=== PATIENT | male | born 1990 | race Caucasian/White ===

== ENCOUNTER 2018-10-07 14:22 | Outpatient (CLI) | payer OTHER | END 2018-10-07 14:23 | disposition home or self-care (01) | LOC: CTENTCT 14:22 | PROVIDERS: ATTEND Otolaryngology Plastic Surgery within the Head & Neck | DX: J32.9 Chronic sinusitis, unspecified (principal) | CPT/HCPCS: 70486 ==

== ENCOUNTER 2018-10-09 07:33 | Day surgery (SDC) | payer OTHER ==
[2018-10-08 10:18] VITALS: BMI 31.4
[2018-10-09] MEDS ORDERED: Fentanyl 250 MCG/5 ML VIAL ONE (08:21)
[2018-10-09] MEDS ORDERED: Oxymetazoline HCl 0.05% ( 15 ML ) ONE ×2 (08:24→09:29)
[2018-10-09] MEDS ORDERED: Bacitracin Zinc Ointment 30 gm TUBE ONE (09:29)
[2018-10-09] MEDS ORDERED: Lidocaine 1% w/Epinephrine 1:100K 20 ML VIAL ONE (09:29)
[2018-10-09] MEDS ORDERED: Morphine 4 MG/ML VIAL ONE (09:41)
[2018-10-09] MEDS ORDERED: Fentanyl 100 MCG/2 ML VIAL ONE ×2 (10:56→11:23)
[2018-10-09] MEDS ORDERED: HYDROcodone/Acetaminophen 5/325 mg Tablet ONE (12:03)
--- NOTE | 2018-10-10 10:03 | OP ---
DATE OF PROCEDURE: 10/09/2018 PREOPERATIVE DIAGNOSES: 1. Chronic rhinosinusitis. 2. Nasal septal deviation. 3. Bilateral inferior turbinate hypertrophy. 4. Nasal obstruction. POSTOPERATIVE DIAGNOSES: 1. Chronic rhinosinusitis. 2. Nasal septal deviation. 3. Bilateral inferior turbinate hypertrophy. 4. Nasal obstruction. PROCEDURES PERFORMED: 1. Bilateral endoscopic sinus surgery, total ethmoidectomies. 2. Bilateral endoscopic sinus surgery, maxillary antrostomies. 3. Bilateral endoscopic sinus surgery, frontal sinusotomies. 4. Nasal septoplasty. 5. Bilateral inferior turbinate submucosal resection. ESTIMATED BLOOD LOSS: 20 mL. COMPLICATIONS: None. ANESTHESIA: GETA. PROCEDURE IN DETAIL: Patient was taken to the operating room and placed supine on the table. General endotracheal anesthesia was obtained by the anesthesia staff. Tube was secured in the left lower lip. Patient was then placed in the beach chair position, and Afrin pledgets were placed in the nasal cavity. Injections of 1% lidocaine with 1:100,000 epinephrine were made into the nasal septum as well as the inferior turbinates. Patient was then prepped and draped in standard surgical fashion for nasal surgery. Following this, the Afrin pledgets were removed. A Elliot incision was made on the left nasal septum. Submucoperichondrial dissection was performed. The deviated portions of the septum included portions of the cartilage and the bony septum. These isolated areas were removed using 3 cutting rongeurs. There was noted to be a large dorsal and caudal strut, left intact for support of the nose. The mucoperichondrial flaps were then reapproximated using a 4-0 gut stitch. Any straight pieces of cartilage were crushed prior to this and placed between the mucoperichondrial flaps. Following this, the inferior turbinates were then punctured with a submucosal coblation wand, and submucosal coblations were performed of multiple areas of the inferior portion of the anterior inferior turbinate. Following this, a 0-degree endoscope was advanced into the middle meatus. The middle turbinate was gently medialized with a Strawberry elevator. The uncinate process was identified and was anteriorly fractured using a ball-ended probe bilaterally. Following this, the 0-degree and up-biting Blakesley forceps were used to remove the uncinate process bilaterally. Following this, the natural maxillary sinus ostia was identified using a ball-ended probe and was gently widened using a 40-degree microdebrider and the straight Blakesley forceps bilaterally. Following this, the ethmoidal bulla was identified bilaterally and was punctured on its medial and inferior aspect with the 0-degree microdebrider. Using the 0-degree microdebrider and the up-biting Blakesley forceps, the ethmoidal bulla was opened along with the anterior ethmoidal cells. Following this, the grand lamella was identified and was punctured into the posterior ethmoidal cells. Working from posterior to anterior, the ethmoidal cells were opened using the 0-degree microdebrider, the curved microdebrider, and the up-biting Blakesley forceps. Following this, a 45-degree endoscope along with the 40-degree microdebrider blade were used to identify the frontal sinus ostia, which was then widened bilaterally using the 40-degree microdebrider. Following this, the nasal cavity was irrigated. Mirapex was placed within the middle meatus. Trujillo splints were placed and secured. The patient tolerated the procedure well. Job ID: [id number]
== END 2018-10-09 12:29 | disposition home or self-care (01) ==
LOC: SDC 07:33
PROVIDERS: ATTEND Otolaryngology Plastic Surgery within the Head & Neck
PROC: 099Q8ZZ Drainage of Right Maxillary Sinus, Via Natural or Artificial Opening Endoscopic (ICD-10-PCS; principal; 2018-10-09)
PROC: 099U8ZZ Drainage of Right Ethmoid Sinus, Via Natural or Artificial Opening Endoscopic (ICD-10-PCS; principal; 2018-10-09)
PROC: 09SM0ZZ Reposition Nasal Septum, Open Approach (ICD-10-PCS; principal; 2018-10-09)
PROC: 099V8ZZ Drainage of Left Ethmoid Sinus, Via Natural or Artificial Opening Endoscopic (ICD-10-PCS; principal; 2018-10-09)
PROC: 099S8ZZ Drainage of Right Frontal Sinus, Via Natural or Artificial Opening Endoscopic (ICD-10-PCS; principal; 2018-10-09)
PROC: 099R8ZZ Drainage of Left Maxillary Sinus, Via Natural or Artificial Opening Endoscopic (ICD-10-PCS; principal; 2018-10-09)
PROC: 09BL8ZZ Excision of Nasal Turbinate, Via Natural or Artificial Opening Endoscopic (ICD-10-PCS; principal; 2018-10-09)
PROC: 099T8ZZ Drainage of Left Frontal Sinus, Via Natural or Artificial Opening Endoscopic (ICD-10-PCS; principal; 2018-10-09)
DX: J32.8 Other chronic sinusitis (principal); J34.2 Deviated nasal septum; J34.3 Hypertrophy of nasal turbinates; J34.89 Other specified disorders of nose and nasal sinuses; F41.9 Anxiety disorder, unspecified; Z87.891 Personal history of nicotine dependence
CPT/HCPCS: J0131; J2001; J2270; J3010

== ENCOUNTER 2020-02-07 21:11 | Emergency (ER) | payer SELFPAY ==
[2020-02-07] MEDS ORDERED: Diazepam 10 MG/2 ML SYRINGE ONE (21:52)
[2020-02-07 22:07] LABS: #Basophils 0.1 thou/uL (0.0-0.2); #Eosinphils 0.3 thou/uL (0.0-0.7); #Lymphocytes 3.4 thou/uL (1.20-3.40); #Monocytes 0.7 thou/uL (0.11-0.59); #Neutrophils 2.7 thou/uL (1.40-6.50); %Basophils 0.9 % (0.0-1.0); %Eosinophils 3.6 % (0.0-10.0); %Lymphocytes 48.2 % (21.0-51.0); %Monocytes 9.8 % (0.0-10.0); %Neutrophils 37.6 % (42.0-75.0); Hemoglobin 13.8 g/dL (14.0-18.0); Mean Corpuscular HGB CONC 36.1 g/dL (32.0-36.0); Mean Corpuscular Hemoglobin 35.7 pg (27.0-31.0); Mean Corpuscular Volume 98.8 fL (78.0-98.0); Mean Platelet Volume 6.3 fL (7.4-10.4); Platelet Count 264 thou/uL (130-400); RBC Distribution Width 11.2 % (11.5-14.5); Red Blood Cell (RBC) Count 3.86 mill/uL (4.70-6.10)
[2020-02-07 22:13] LABS: Bacteria/HPF None Seen HPF (None Seen); Bilirubin Negative (Negative); Blood, Urine Trace (Negative); Clarity Clear (Clear); Glucose, Urine (Dipstick) Normal (Negative); Ketone, Urine Negative (Negative); Leukocyte Negative Leu/uL (Negative); Nitrite Negative (Negative); Protein, Urine (Dipstick) Negative (Neg-Trace); RBC/HPF 0-3 HPF (0-3); Specific Gravity, Urine 1.018 (1.002-1.036); Squamous Epithelial None Seen HPF (0-3); Urobilinogen Normal mg/dL (Less than 2); WBC/HPF 0-3 HPF (0-3); pH, Urine 5.5 (5.0-9.0)
[2020-02-07 22:18] LABS: ALT (SGPT) 15 U/L (8-55); AST (SGOT) 19 U/L (5-34); Albumin 4.5 g/dL (3.5-5.0); Alkaline Phosphatase 100 U/L (40-110); Anion Gap 17 mmol/L (10-20); BUN (Urea Nitrogen) 13 mg/dL (8.9-20.6); Bilirubin, Total 0.3 mg/dL (0.2-1.2); Calc. Creatinine Clearance 0 mL/min (70-130); Calcium 8.8 mg/dL (7.8-10.44); Carbon Dioxide 23 mmol/L (22-29); Chloride 107 mmol/L (98-107); Estimated GFR-MDRD 87; Globulin 3.2 g/dL (2.4-3.5); Glucose 95 mg/dL (70-105); Protein, Total 7.7 g/dL (6.0-8.3); Sodium 143 mmol/L (136-145)
[2020-02-07 22:20] LABS: Alcohol 96 mg/dL (Less than 10); Salicylate Less than 8.0 mg/dL (15.0-30.0)
[2020-02-07 22:24] LABS: Amphetamine Not Detected (NotDetected); Barbiturates Screen Not Detected (NotDetected); Benzodiazepine Screen Not Detected (NotDetected); Cocaine Metabolite Screen Not Detected (NotDetected); Medtox Control Line Valid? VALID (VALID); Medtox Reader # READER 1; Methadone Not Detected (NotDetected); Methamphetamine Not Detected (NotDetected); Opiate Screen Detected (NotDetected); Oxycodone Screen Detected (NotDetected); Phencyclidine (PCP) Not Detected (NotDetected); THC/Cannabinoid Screen Not Detected (NotDetected); Tricyclic Screen Not Detected (NotDetected)
== END 2020-02-07 23:00 | disposition home or self-care (01) ==
LOC: ERS 21:11
DX: F32.9 Major depressive disorder, single episode, unspecified (principal); F10.129 Alcohol abuse with intoxication, unspecified; Y90.4 Blood alcohol level of 80-99 mg/100 ml
CPT/HCPCS: 36415; 80053; 80306; 80307; 81003; 81015; 85025; 93005; 94760; 96374; J3360

== ENCOUNTER 2020-11-07 21:07 | Emergency (ER) | payer OTHER, SELFPAY ==
[2020-11-07 22:30] LABS: #Eosinphils 0.2 thou/uL (0.0-0.7); #Lymphocytes 1.9 thou/uL (1.20-3.40); #Monocytes 0.5 thou/uL (0.11-0.59); %Basophils 0.8 % (0.0-1.0); %Eosinophils 2.9 % (0.0-10.0); %Lymphocytes 34.3 % (21.0-51.0); %Monocytes 8.8 % (0.0-10.0); %Neutrophils 53.3 % (42.0-75.0); Hemoglobin 12.7 g/dL (14.0-18.0); Mean Corpuscular HGB CONC 34.8 g/dL (32.0-36.0); Mean Platelet Volume 5.7 fL (7.4-10.4); Platelet Count 293 thou/uL (130-400); RBC Distribution Width 12.2 % (11.5-14.5); Red Blood Cell (RBC) Count 3.63 mill/uL (4.70-6.10); White Blood Cell (WBC) Count 5.6 thou/uL (4.8-10.8)
[2020-11-07 22:57] LABS: ALT (SGPT) 19 U/L (8-55); AST (SGOT) 22 U/L (5-34); Albumin 4.1 g/dL (3.5-5.0); Alkaline Phosphatase 76 U/L (40-110); Anion Gap 14 mmol/L (10-20); BUN (Urea Nitrogen) 7 mg/dL (8.9-20.6); Bilirubin, Total 0.3 mg/dL (0.2-1.2); Calc. Creatinine Clearance 0 mL/min (70-130); Calcium 8.7 mg/dL (7.8-10.44); Carbon Dioxide 27 mmol/L (22-29); Chloride 103 mmol/L (98-107); Globulin 3.1 g/dL (2.4-3.5); Glucose 119 mg/dL (70-105); Potassium 4.5 mmol/L (3.5-5.1); Protein, Total 7.2 g/dL (6.0-8.3); Sodium 139 mmol/L (136-145)
== END 2020-11-07 23:25 | disposition home or self-care (01) ==
LOC: ERS 21:07
DX: S06.0X9A Concussion with loss of consciousness of unspecified duration, initial encounter (principal); S00.03XA Contusion of scalp, initial encounter; Y00.XXXA Assault by blunt object, initial encounter
CPT/HCPCS: 36415; 70450; 70486; 71045; 80053; 85025